=== PATIENT | male | born 1985 | race Caucasian/White ===

== ENCOUNTER 2021-11-08 01:36 | Emergency (ER) | payer MEDICAID ==
[~2021-11-08] VITALS: Ht 165.1 cm; Wt 82.0 kg
[2021-11-08 02:02] VITALS: BP 134/90
[2021-11-08] MEDS ORDERED: LIDOCAINE HCL/PF 1% 10 MG/ML 5ML VIAL INFIL ONE (02:15)
[2021-11-08] MEDS ORDERED: LIDOCAINE HCL 1% 20ML VIAL (Pyxis) INJ INFIL SCH (03:30)
[2021-11-08] MEDS ORDERED: IBUP-2029 MT (03:56)
[2021-11-08] MEDS ORDERED: KETOROLAC 60MG/2ML VIAL IM ONE (04:00)
== END 2021-11-08 04:05 | disposition home or self-care (01) ==
LOC: ER 02:12
DX: S01.511A Laceration without foreign body of lip, initial encounter (principal); W22.8XXA Striking against or struck by other objects, initial encounter; Y93.89 Activity, other specified; Y92.89 Other specified places as the place of occurrence of the external cause
CPT/HCPCS: 12011; 99282; J3490

== ENCOUNTER 2022-03-02 00:16 | Emergency (ER) | payer MEDICAID ==
[~2022-03-02] VITALS: Ht 165.1 cm; Wt 82.0 kg
[~2022-03-02 00:16] MED LIST: IBUP-2029 MT
[2022-03-02 00:35] VITALS: BP 126/91
[2022-03-02] MEDS ORDERED: IBUPROFEN 800MG TABLET PO ONE (08:00)
== END 2022-03-02 09:42 | disposition left against medical advice (07) ==
LOC: ER 00:45
DX: Z53.21 Procedure and treatment not carried out due to patient leaving prior to being seen by health care provider (principal)